=== PATIENT | female | born 2000 | race Asian ===

== ENCOUNTER 2022-07-21 07:30 | Inpatient (IN) ==
--- NOTE | 2022-07-16 10:52 | Anesthesiology Consultation ---
Date of Service July 16, 2022 Assessment & Plan (1) Encounter for pre-operative examination: - COVID screening: Per culinary specialist on 07/16/2022: Travel screen negative, no known COVID-19 positive contacts or current COVID-19 related symptoms in past 2 weeks. To surgeon's discretion if preop COVID testing needed. Chart Review Chart Review: Acceptable Risk for Surgery and Patient NOT seen in Pre Admission Testing History Surgery Operation Date: 07/21/22 07:30 Proposed Procedures p Section (Delivery of Baby Through Abdominal Incision) - Maria Luisa Robles, Height/Weight Height: 5 ft 10 in Weight: 95 kg Allergies Allergy/AdvReac Type Severity Reaction Status Date / Time No Known Allergies Allergy Verified 07/16/22 10:15 Medications Home Medications Medication Instructions Recorded Confirmed Last Taken acetaminophen 500 mg tablet 500 mg PO Q6H PRN Pain 07/16/22 07/16/22 Unknown calcium carbonate 200 mg calcium 200 mg PO UD PRN Indigestion 07/16/22 07/16/22 Unknown (500 mg) chewable tablet (Tums) famotidine 20 mg tablet (Pepcid) 20 mg PO HS 07/16/22 07/16/22 Unknown prenat.vits,monica,vbk-[id number]-xiudy 1 tab PO HS 07/16/22 07/16/22 Unknown Past Medical History Medical History GERD (gastroesophageal reflux disease) History of chicken pox History of COVID-19 02/2022, home test, not hosp; cough, fever, sore throat, fatigue, runny nose, headache>resolved Past Family History Family History Mother Breast cancer Denies family history of Ovarian cancer Lung cancer Past Surgical History Surgical History No significant past surgical history Social History Smoking Status: Never smoker Do You Dip or Chew Tobacco: No Hx Alcohol Use: Yes (not while ) alcohol intake frequency: holidays/special occasions only Hx Substance Use: No substance use type: does not use
[~2022-07-21 07:30] MED LIST: CITRIC ACID/SODIUM CITRATE 15 ML UDC PO SCH; ceFAZolin 2000MG 2,000 MG/15 ML SYR IV SCH
[2022-07-21] MEDS ORDERED: LACTATED RINGER'S 1,000 ML IV SCH ×2 (09:15→17:44)
[2022-07-21 09:21] LABS: Hematocrit (blood only) 36.5 % (34.1-44.9); Hemoglobin 12.2 g/dl (12.0-16.0); Mean Corpuscular Hemoglobin 29.4 pg (25.0-34.0); Mean Corpuscular Hgb Conc 33.4 g/dL (32.0-36.0); Mean Platelet Volume 10.9 fL (9.4-12.3); Platelet Count 210 K/uL (130-400); RDW Coefficient of Variation 14.6 % (11.5-14.5); RDW Standard Deviation 46.6 fL (36.4-46.3); Red Blood Count 4.15 M/uL (3.93-5.22); White Blood Count 8.09 K/ul (4.8-10.8)
[2022-07-21] MEDS ORDERED: diphenhydrAMINE 50 MG/ML VIAL IV PRN (10:29)
[2022-07-21] MEDS ORDERED: NALOXONE HCL 1 MG in SODIUM CHLORIDE 0.9% 1000ML 1,000 ML IV PRN (10:29)
[2022-07-21] MEDS ORDERED: NALBUPHINE HCL INJ 10 MG/ML AMP IV PRN (10:29)
[2022-07-21] MEDS ORDERED: ePHEDrine sulfate 50 MG/ML AMP IV PRN (10:29)
[2022-07-21] MEDS ORDERED: NALOXONE HCL 0.08 MG in SYRINGE 1.8 ML IV PRN (10:29)
[2022-07-21] MEDS ORDERED: LACTATED RINGER'S 500 ML IV PRN (10:29)
[2022-07-21] MEDS ORDERED: MoRPHine SULFATE PF 1 MG/ML 10 ML AMP/VIAL INT SPINAL ONE (10:29)
[2022-07-21] MEDS ORDERED: HYDROmorphone INJ 0.5 MG/0.5 ML SYR IV PRN (10:29)
[2022-07-21] MEDS ORDERED: ONDANSETRON INJ 2 MG/ML 2 ML VIAL IV PRN (10:29)
[2022-07-21] MEDS ORDERED: NALOXONE HCL 0.4 MG/1 ML VIAL/CARP IV PRN (10:29)
[2022-07-21] MEDS ORDERED: DC INTRASPINAL MORPHINE SCH (10:30)
[2022-07-21] MEDS ORDERED: SODIUM CHLORIDE 0.9% 1000ML 1,000 ML IV SCH (10:30)
[2022-07-21] MEDS ORDERED: NO NARCOTICS OR SEDATIVES SCH (10:30)
[2022-07-21] MEDS ORDERED: OXYTOCIN 10 UNITS/ML 10ML VIAL ONE (10:36)
[2022-07-21] MEDS ORDERED: MoRPHine SULFATE PF 1 MG/ML 10 ML AMP/VIAL ONE (10:36)
[2022-07-21] MEDS ORDERED: fentaNYL citrate 100 MCG/2 ML VIAL ONE (10:36)
--- NOTE | 2022-07-21 11:52 | History & Physical Report ---
Date of Service July 21, 2022 Assessment & Plan (1) Encounter for supervision of normal intrauterine in primigravida, antepartum: Plan: Electing primary section. Informed consent was discussed in the office, patient is agreeable. We have reviewed recommendations for vaginal delivery, patient is requesting an elective section instead. Admission and Anticipated Discharge Date Admission Date: July 21, 2022 History of Present Illness Chief Complaint: elective primary Primary Care Provider: [facility] 22yo @ 39 11/04, electing primary section. COVID POSITIVE 03/10/22 HOME TEST (SX STARTED 03/09/22) COVID vaccine from [place] x3 poor tolerance of pelvic exam May need education paraprofessional with some visits. NT per pt request * 01/13/22 @ [facility] small 3cm probable endometrioma of left ovary f/u pp PRIMARY ELECTIVE C/S SCHEDULED FOR 07/21/[address] LEAL NEEDS COVID TEST ON 07/17/2022-ORDERED Allergies Allergy/AdvReac Type Severity Reaction Status Date / Time No Known Allergies Allergy Verified 07/16/22 12:14 Home Medications Medication Instructions Recorded Confirmed Type acetaminophen 500 mg tablet 500 mg PO Q6H PRN Pain 07/16/22 07/21/22 History calcium carbonate 200 mg calcium 200 mg PO UD PRN Indigestion 07/16/22 07/21/22 History (500 mg) chewable tablet (Tums) famotidine 20 mg tablet (Pepcid) 20 mg PO HS 07/16/22 07/21/22 History prenat.vits,monica,[id number] 1 tab PO HS 07/16/22 07/21/22 History Patient History Medical History GERD (gastroesophageal reflux disease) History of chicken pox History of COVID-19 02/2022, home test, not hosp; cough, fever, sore throat, fatigue, runny nose, headache>resolved Surgical History No significant past surgical history Family History Mother Breast cancer Denies family history of Ovarian cancer Lung cancer Social History (Updated 12/12/21 @ 13:45 by Denise Sheehan RN) Smoking Status: Never smoker Second Hand Exposure: No; Do You Dip or Chew Tobacco: No; Tobacco Cessation Education Requested by Patient: No Hx Alcohol Use: No Hx Substance Use: No Preferred Language: Mandarin Croatian Communication Ability: Impaired Hearing Ability: Normal Historiographer Required: Yes Beliefs That Will Affect Care: None marital status: marital status details: MENDOZA Muniz (26) [phone] Current Living Situation: Spouse Current Living Situation Comment: FOB - 1 cat ( FOB doing cat litter) current occupational status: student Other Information That Helps Us Care for You: No Feels Safe at Home: Yes Safety Concerns: Feels Safe At This Time Assistive Devices: Glasses Review of Systems All systems reviewed & are unremarkable except as noted in HPI & below Physical Exam Constitutional: WD/WN, vitals as above Respiratory: normal respiratory effort, lungs clear to auscultation no respiratory distress Cardiovascular: Rate/Rhythm: regular rate and regular rhythm Gastrointestinal (Abdomen): Inspection/Auscultation: abdomen normal to inspection Percussion/Palpation: abdomen soft; abdomen nontender Gravid. No s/s chorio or abruption. Skin: no rashes, warm and dry Psychiatric: A+Ox3, euthymic affect Results & Data ([facility]) Vital Signs (Past 12 Hours) Vital Signs Temp Pulse Resp BP Pulse Ox 07/21/22 11:47 75 97 07/21/22 11:42 73 97 07/21/22 11:37 79 98 07/21/22 11:32 81 99 07/21/22 11:27 87 98 07/21/22 11:22 74 97 07/21/22 11:17 76 97 07/21/22 11:12 72 95 07/21/22 11:07 70 95 07/21/22 11:02 71 95 07/21/22 11:01 77 94 07/21/22 10:57 70 96 07/21/22 10:52 73 96 07/21/22 10:47 77 96 07/21/22 10:42 77 97 07/21/22 10:37 77 97 07/21/22 10:32 82 98 07/21/22 10:27 86 98 07/21/22 10:22 78 97 07/21/22 10:17 77 97 07/21/22 10:12 82 98 07/21/22 10:07 81 97 07/21/22 10:02 72 98 07/21/22 09:57 78 98 07/21/22 09:52 75 98 07/21/22 09:47 70 97 07/21/22 09:36 74 99 07/21/22 09:31 76 98 07/21/22 09:26 81 96 07/21/22 09:21 76 97 07/21/22 09:16 76 97 07/21/22 09:11 75 98 07/21/22 09:06 70 97 07/21/22 09:01 75 97 07/21/22 08:56 74 97 07/21/22 08:51 74 96 07/21/22 08:46 70 96 07/21/22 08:41 77 95 07/21/22 08:23 72 123/58 L 07/21/22 08:24 37.1 C 20 Coding Level of Care Code None Diagnoses Encounter for supervision of normal intrauterine in primigravida, antepartum Z34.00
[2022-07-21] MEDS ORDERED: PHENYLEPHRINE 100MCG/ML 5ML SYR ONE (14:39)
[2022-07-21] MEDS ORDERED: ONDANSETRON INJ 2 MG/ML 2 ML VIAL ONE (14:57)
[2022-07-21 16:11] LABS: Base Excess Cord Arterial Bld -1.4 mEq/L (-9-1.8); Base Excess Cord Venous Blood -1.3 mEq/L (-7.7-1.9); CO2 Cord Arterial Blood 49 mmHg (39.1-73.5); Cord Venous Blood HCO3 25 mmol/L (18.4-26.8); Cord Venous Blood PCO2 46 mmHg (30.4-57.2); Cord Venous Blood PO2 26 mmHg (14.1-43.3); Cord Venous Blood pH 7.34 (7.20-7.44); HCO3 Cord Arterial Blood 25 mmol/L (19.7-28.5); O2 Saturation Cord Venous Bld < 60.0 % (<68); Oxygen Sat Cord Arterial Blood < 60.0 % (<60); PO2 Cord Arterial Blood 25 mmHg (4.1-31.7); pH Cord Arterial Blood 7.32 (7.1-7.38)
--- NOTE | 2022-07-21 16:43 | Anesthesiology Progress Note ---
Date of Service July 21, 2022 Anesthesia Post Procedure Vital Signs Vital Signs: Temp Pulse Resp BP Pulse Ox 07/21/22 16:40 16 07/21/22 16:30 16 07/21/22 16:20 16 07/21/22 16:10 16 07/21/22 16:00 36.3 C L 20 99 07/21/22 16:40 67 07/21/22 16:40 62 136/78 99 07/21/22 16:35 63 100 07/21/22 16:30 61 136/77 99 07/21/22 16:25 58 L 100 07/21/22 16:20 56 L 127/81 99 07/21/22 16:15 58 L 100 07/21/22 16:10 65 07/21/22 16:10 61 126/74 99 07/21/22 16:05 66 98 07/21/22 16:00 57 L 121/67 99 07/21/22 15:57 69 122/76 07/21/22 15:55 62 100 07/21/22 15:50 62 99 07/21/22 15:47 60 123/68 07/21/22 14:20 80 97 07/21/22 14:15 89 99 07/21/22 14:10 83 98 07/21/22 14:05 79 99 07/21/22 12:29 37.1 C 65 20 114/61 07/21/22 12:17 72 97 07/21/22 12:12 73 97 07/21/22 12:07 90 98 07/21/22 12:02 84 98 07/21/22 11:57 79 99 07/21/22 11:52 83 96 07/21/22 11:47 75 97 07/21/22 11:42 73 97 07/21/22 11:37 79 98 07/21/22 11:32 81 99 07/21/22 11:27 87 98 07/21/22 11:22 74 97 07/21/22 11:17 76 97 07/21/22 11:12 72 95 07/21/22 11:07 70 95 07/21/22 11:02 71 95 07/21/22 11:01 77 94 07/21/22 10:57 70 96 07/21/22 10:52 73 96 07/21/22 10:47 77 96 07/21/22 10:42 77 97 07/21/22 10:37 77 97 07/21/22 10:32 82 98 07/21/22 10:27 86 98 07/21/22 10:22 78 97 07/21/22 10:17 77 97 07/21/22 10:12 82 98 07/21/22 10:07 81 97 07/21/22 10:02 72 98 07/21/22 09:57 78 98 07/21/22 09:52 75 98 07/21/22 09:47 70 97 07/21/22 09:36 74 99 07/21/22 09:31 76 98 07/21/22 09:26 81 96 07/21/22 09:21 76 97 07/21/22 09:16 76 97 07/21/22 09:11 75 98 07/21/22 09:06 70 97 07/21/22 09:01 75 97 07/21/22 08:56 74 97 07/21/22 08:51 74 96 07/21/22 08:46 70 96 07/21/22 08:41 77 95 07/21/22 08:23 72 123/58 L 07/21/22 08:24 37.1 C 20 Transfer of Care Handoff Completed per policy Notes Mental Status: alert / awake / arousable Patient Amnestic to Procedure: Yes Nausea / Vomiting: adequately controlled Pain: adequately controlled Airway Patency, RR, SpO2: stable & adequate BP & HR: stable & adequate Hydration State: stable & adequate Neuraxial Anesthesia: was administered and sensory block is resolving Anesthetic Complications: no major complications apparent and Pt Satisfied with anesthetic care
--- NOTE | 2022-07-21 16:54 | Operative Report ---
PG Post Operative Report Pre & Post Diagnosis Operation Date: 07/21/22 10:10 Pre-Op Diagnosis: Elective Section Post-Op Diagnosis: Elective Section I identified the patient and participated in the time-out.: Yes Procedure Operation Date: 07/21/22 10:10 Actual Procedures Primary low transverse Section (Delivery of Baby Through Abdominal Incision); Live female child at 1456 (Bilateral) - Maria Luisa Robles DO Surgeon Maria Luisa Robles, Wood Milling Machine Tender Mary Jo Medrano DO PGY1 Estimated Blood Loss 700 Findings Consistent with Post-Op Diagnosis Viable female , Apgars 8/9. Weight pending - please see nursery records. Normal appearing uterus, fallopian tubes. There was a small left ovarian cyst. Specimens placenta, cord blood, cord gas Drains rae clear yellow Anesthesia Type Spinal Complications none Disposition Accompanied Patient To Recovery: No Disposition: L&D Indications 22yo desiring elective primary section. Description of Procedure The patient was seen in her labor and delivery room, risks benefits and alternatives to surgery were reviewed. Informed consent obtained previously in the office. Questions were answered. She was taken to the operating room, spinal anesthesia was administered. She was then prepared and draped in the usual sterile fashion in the supine position with a leftward tilt. Timeout was confirmed. A Pfannenstiel skin incision was made with a scalpel, and carried through to the underlying layer of fascia. Fascia was nicked at midline, and this incision was extended bilaterally. The superior aspect of the fascial incision was grasped with Bhupinder clamps x2, elevated off the underlying rectus abdominis muscles, and dissected sharply and bluntly. In similar fashion, the inferior aspect of the fascial incision was dissected. The rectus abdominis muscles were , and the peritoneum was entered bluntly digitally. This was extended bilaterally. The bladder flap was taken down carefully using Metzenbaum scissors. Using a new scalpel, a low transverse uterine incision was created. Clear amniotic fluid noted. The infant was delivered from a cephalic presentation. The head delivered, followed by shoulders and body. Spontaneous cry on the field. The cord was doubly clamped and cut, and the infant was handed off to the waiting forest technology professor. A segment was retained for cord gases. Cord blood was obtained. The placenta was delivered spontaneously intact. The uterus was ext eriorized, and cleared of all clots and debris. The hysterotomy incision was reapproximated using 0 Vicryl in a running locked stitch. A second layer of the same suture was used to imbricate the incision. Posterior uterus was evaluated and normal. The uterus was returned to the abdomen, and gutters were cleared of clots and debris. Excellent hemostasis was observed. Per patient request, the rectus abdominis muscles were reapproximated with 2 [id number] sutures of 2-0 chromic. The fascial incision was reapproximated using 0 Vicryl in a running stitch. The subcutaneous tissue was irrigated, and reapproximated using 2-0 plain gut in a running stitch. The skin was reapproximated using 4-0 Vicryl in a running subcuticular stitch. Steri-Strips and a bandage were applied. The patient tolerated the procedure well, and will be taken to the recovery area in stable and good condition. Sponge, needle, instrument counts correct x 2 at conclusion of the case. I attest to the content of the Intraoperative Record and any orders documented therein. Any exceptions are noted below. OB Procedure Charges 66309
[2022-07-21] MEDS: OXYTOCIN 30 UNITS in LACTATED RINGER'S 1,000 ML IV SCH (17:00)
[2022-07-21] MEDS ORDERED: SENNA 8.6 MG TAB PO PRN (17:44)
[2022-07-21] MEDS ORDERED: BENZOCAINE 20% AER SPR 82.5 GM CAN EXT PRN (17:44)
[2022-07-21] MEDS ORDERED: MAGNESIUM HYDROXIDE SUSP 30 ML UDC PO PRN (17:44)
[2022-07-21] MEDS ORDERED: HYDROCORTISONE ACETATE 25 MG SUPP PR PRN (17:44)
[2022-07-21] MEDS ORDERED: DIPHTHERIA/TETANUS/PERTUSSIS 0.5 ML SYR/VIAL IM ONE (17:44)
[2022-07-21] MEDS: SIMETHICONE 80 MG CHEW PO SCH ×2 (19:11→20:06)
[2022-07-21] MEDS: DOCUSATE SODIUM 100 MG CAP PO SCH (20:06)
[2022-07-21] MEDS: KETOROLAC 30 MG/ML VIAL IV PRN (20:06)
[2022-07-22] MEDS: OXYTOCIN 30 UNITS in LACTATED RINGER'S 1,000 ML IV SCH (00:53)
[2022-07-22] MEDS: KETOROLAC 30 MG/ML VIAL IV PRN (04:22)
[2022-07-22] MEDS ORDERED: diphenhydrAMINE 50 MG/ML VIAL IV PRN (04:30)
[2022-07-22] MEDS ORDERED: ONDANSETRON INJ 2 MG/ML 2 ML VIAL IV PRN (04:30)
[2022-07-22] MEDS ORDERED: KETOROLAC 30 MG/ML VIAL IV PRN (04:30)
[2022-07-22] MEDS ORDERED: diphenhydrAMINE Capsule 25 MG CAP PO PRN (04:30)
[2022-07-22] MEDS ORDERED: PROMETHAZINE HCL 25 MG in SODIUM CHLORIDE 0.9% 50 ML IV PRN (04:30)
--- NOTE | 2022-07-22 05:53 | Obstetrical Progress Note ---
Date of Service <Veronique Medrano - Last Filed: 07/22/22 06:46> July 22, 2022 Assessment & Plan <Veronique Medrano - Last Filed: 07/22/22 06:46> (1) Status post section: Rain is out, do a trial of OOB and ambulation and then progress diet as tolerated <Karen Cortes MD - Last Filed: 07/22/22 06:51> (1) Status post section: Subjective <Veronique Medrano - Last Filed: 07/22/22 06:46> Bryn is a 22 y/o female who is POD #1 following delivery at 39 2/7 weeks. She reports feeling well overall this morning. Mild abdominal cramping & pain well managed on analgesics. Rain was just removed, has not voided yet. Tolerating meals overnight. Has not been able to ambulate. Is passing gas and no bowel movement. Has some persistent lochia with some improvement this morning. Currently bottle feeding. Review of Systems Denies fever, chills, sweats Denies shortness of breath, difficulty breathing, chest pain, palpitations, chest pressure. Denies breast pain. Denies dysuria. Denies headache or changes in vision. Physical Exam <Veronique Medrano - Last Filed: 07/22/22 06:46> General: Alert, oriented. No acute distress. Cardiac: Regular rate and rhythm, no murmurs/rubs/gallops. Respiratory: Clear to auscultation bilaterally a/p, no wheezes/rales/rhonchi. No increased work of breathing. Symmetrical chest rise. No respiratory distress. Abdomen: Soft, nontender, nondistended. Uterus: Uterine fundus firm, palpable 2 cm below umbilicus. Surgical scar clean and healing well. Lower Extremities: No lower extremity edema or swelling. No deep calf pain. Radha's negative bilaterally. Results & Data ([facility]) <Veronique Medrano - Last Filed: 07/22/22 06:46> Vital Signs (Past 12 Hours) Vital Signs Temp Pulse Pulse Resp BP BP Pulse Ox 07/22/22 04:30 16 98 07/22/22 04:30 36.9 C 74 16 122/76 99 07/22/22 03:00 16 98 07/22/22 02:00 18 98 07/22/22 01:00 16 98 07/22/22 00:00 16 98 07/21/22 23:00 16 99 07/21/22 23:00 36.6 C 66 16 115/74 99 07/21/22 22:00 16 98 07/21/22 21:00 16 98 07/21/22 20:00 18 98 07/21/22 19:30 16 99 07/21/22 19:30 37.0 C 74 16 115/75 99 07/21/22 18:00 18 100 07/21/22 18:00 36.9 C 74 18 117/74 100 07/21/22 18:00 36.9 C 16 07/21/22 18:00 81 123/81 99 07/21/22 17:58 75 117/74 07/21/22 17:55 70 99 O2 Del Method 07/22/22 04:30 07/22/22 04:30 Room Air 07/22/22 03:00 07/22/22 02:00 07/22/22 01:00 07/22/22 00:00 07/21/22 23:00 07/21/22 23:00 Room Air 07/21/22 22:00 07/21/22 21:00 07/21/22 20:00 07/21/22 19:30 07/21/22 19:30 Room Air 07/21/22 18:00 07/21/22 18:00 Room Air 07/21/22 18:00 07/21/22 18:00 07/21/22 17:58 07/21/22 17:55 <Karen Cortes MD - Last Filed: 07/22/22 06:51> Co-Signing Physician Notes Resident Physician Supervision Note: I interviewed and examined the patient. Discussed with Dr. Medrano and agree with findings and plan as documented in the note. Any exceptions or clarifications are listed here: [ ] Documented By: Karen Cortes MD, FACOG Resident Activity Tracking <Veronique Medrano DO - Last Filed: 07/22/22 06:46> Resident Involvement: Resident Care Provided Care Provided: OB Delivery (Post )
[2022-07-22] MEDS ORDERED: ceFAZolin 2000MG 2,000 MG/15 ML SYR IV SCH (06:00)
[2022-07-22] MEDS ORDERED: CITRIC ACID/SODIUM CITRATE 15 ML UDC PO SCH (06:00)
[2022-07-22 06:21] LABS: Basophils # (auto) 0.02 K/uL (0-0.2); Basophils % (auto) 0.2 %; Eosinophils # (auto) 0.06 K/uL (0-0.50); Eosinophils % (auto) 0.6 %; Hematocrit (blood only) 32.2 % (34.1-44.9); Hemoglobin 10.8 g/dl (12.0-16.0); Immature Granulocytes # (auto) 0.05 K/uL (0.00-0.02); Immature Granulocytes % (auto) 0.5 %; Lymphocytes # (auto) 1.38 K/uL (1.2-3.4); Lymphocytes % (auto) 14.3 %; Mean Corpuscular Hemoglobin 29.1 pg (25.0-34.0); Mean Corpuscular Hgb Conc 33.5 g/dL (32.0-36.0); Mean Corpuscular Volume 86.8 fL (80.0-100.0); Mean Platelet Volume 10.6 fL (9.4-12.3); Monocytes # (auto) 0.57 K/uL (0.24-0.82); Monocytes % (auto) 5.9 %; Neutrophils # (auto) 7.55 K/uL (1.4-6.5); Neutrophils % (auto) 78.5 %; Platelet Count 177 K/uL (130-400); RDW Coefficient of Variation 14.6 % (11.5-14.5); RDW Standard Deviation 46.4 fL (36.4-46.3); Red Blood Count 3.71 M/uL (3.93-5.22); White Blood Count 9.63 K/ul (4.8-10.8)
[2022-07-22] MEDS: PRENATAL VITAMIN 1 TAB PO SCH (07:41)
[2022-07-22] MEDS: DOCUSATE SODIUM 100 MG CAP PO SCH ×2 (07:41→20:05)
[2022-07-22] MEDS: FERROUS SULFATE 325 MG TAB PO SCH (07:41)
[2022-07-22] MEDS: SIMETHICONE 80 MG CHEW PO SCH ×4 (07:41→20:05)
[2022-07-22] MEDS: oxyCODONE/ACETAMINOPHEN 5mg/325mg TAB PO PRN ×4 (08:38→20:06)
[2022-07-22] MEDS: IBUPROFEN 600 MG TAB PO PRN ×4 (08:38→20:06)
[2022-07-22] MEDS ORDERED: bisacodyL 5 MG TABEC PO SCH (20:00)
[2022-07-23] MEDS: oxyCODONE/ACETAMINOPHEN 5mg/325mg TAB PO PRN ×5 (00:08→20:53)
[2022-07-23] MEDS: IBUPROFEN 600 MG TAB PO PRN ×5 (00:09→20:49)
--- NOTE | 2022-07-23 06:08 | Obstetrical Progress Note ---
Date of Service <Veronique Medrano DO - Last Filed: 07/23/22 06:52> July 23, 2022 Assessment & Plan <Veronique Medrano - Last Filed: 07/23/22 06:52> (1) Status post section: Rain is out, continue OOB and ambulation and progress diet as tolerated <Shahana Mchugh MD, FACOG - Last Filed: 07/23/22 08:16> (1) Status post section: Subjective <Veronique Medrano - Last Filed: 07/23/22 06:52> Bryn is a 22 y/o female who is POD #1 following delivery at 39 2/7 weeks. She reports feeling well overall this morning. Moderate abdominal cramping, pain well managed on analgesics.Voiding. Tolerating meals. Has been able to ambulate. Is passing gas and no bowel movement. Has some persistent lochia with some improvement this morning. Currently bottle feeding. Review of Systems Denies fever, chills, sweats Denies shortness of breath, difficulty breathing, chest pain, palpitations, chest pressure. Denies breast pain. Denies dysuria. Denies headache or changes in vision. Physical Exam <Veronique Medrano - Last Filed: 07/23/22 06:52> General: Alert, oriented. No acute distress. Cardiac: Regular rate and rhythm, no murmurs/rubs/gallops. Respiratory: Clear to auscultation bilaterally a/p, no wheezes/rales/rhonchi. No increased work of breathing. Symmetrical chest rise. No respiratory distress. Abdomen: Soft, nontender, nondistended. Uterus: Uterine fundus firm, palpable 2 cm below umbilicus. Surgical scar clean and healing well. Lower Extremities: No lower extremity edema or swelling. No deep calf pain. Radha's negative bilaterally. Results & Data ([facility]) <Veronique Medrano - Last Filed: 07/23/22 06:52> Vital Signs (Past 12 Hours) Vital Signs Temp Pulse Resp BP Pulse Ox O2 Del Method 07/22/22 23:40 36.8 C 68 16 127/79 98 Room Air 07/22/22 19:40 36.8 C 69 18 118/77 98 Room Air <Shahana Mchugh MD, FACOG - Last Filed: 07/23/22 08:16> Co-Signing Physician Notes Resident Physician Supervision Note: I interviewed and examined the patient. Discussed with Dr. Medrano and agree with findings and plan as documented in the note. Any exceptions or clarifications are listed here: [None] Documented By: Shahana Mchugh MD, FACOG Resident Activity Tracking <Veronique Medrano DO - Last Filed: 07/23/22 06:52> Resident Involvement: Resident Care Provided Care Provided: OB Delivery (Post )
[2022-07-23 07:11] LABS: Hematocrit (blood only) 32.4 % (34.1-44.9); Hemoglobin 10.8 g/dl (12.0-16.0)
[2022-07-23] MEDS: SIMETHICONE 80 MG CHEW PO SCH ×4 (08:02→20:49)
[2022-07-23] MEDS: PRENATAL VITAMIN 1 TAB PO SCH (08:02)
[2022-07-23] MEDS: DOCUSATE SODIUM 100 MG CAP PO SCH ×2 (08:02→20:48)
[2022-07-23] MEDS: FERROUS SULFATE 325 MG TAB PO SCH (08:02)
[2022-07-23] MEDS ORDERED: bisacodyL 10 MG SUPP PR PRN (16:56)
[2022-07-24] MEDS: IBUPROFEN 600 MG TAB PO PRN ×3 (05:11→13:29)
[2022-07-24] MEDS: oxyCODONE/ACETAMINOPHEN 5mg/325mg TAB PO PRN ×3 (05:11→13:29)
--- NOTE | 2022-07-24 05:52 | Obstetrical Progress Note ---
Date of Service <Veronique Medrano, DO - Last Filed: 07/24/22:29> July 24, 2022 Assessment & Plan <Veronique Medrano DO - Last Filed: 07/24/22:29> (1) Status post section: Rain is out, continue OOB and ambulation and progress diet as tolerated <Maria Luisa Robles, DO - Last Filed: 07/24/22 07:12> (1) Status post section: Subjective <Veronique Medrano DO - Last Filed: 07/24/22 06:29> Bryn is a 22 y/o female who is POD #3 following delivery at 39 2/7 weeks. She reports feeling well overall this morning. Moderate abdominal cramping, pain well managed on analgesics.Voiding. Tolerating meals. Has been able to ambulate. Is passing gas. Has some persistent lochia with some improvement this morning. Currently bottle feeding. Review of Systems Denies fever, chills, sweats Denies shortness of breath, difficulty breathing, chest pain, palpitations, chest pressure. Denies breast pain. Denies dysuria. Denies headache or changes in vision. Physical Exam <Veronique Medrano DO - Last Filed: 07/24/22 06:29> General: Alert, oriented. No acute distress. Cardiac: Regular rate and rhythm, no murmurs/rubs/gallops. Respiratory: Clear to auscultation bilaterally a/p, no wheezes/rales/rhonchi. No increased work of breathing. Symmetrical chest rise. No respiratory distress. Abdomen: Soft, nontender, nondistended. Uterus: Uterine fundus firm, palpable 2 cm below umbilicus. Surgical scar clean and healing well. Lower Extremities: No lower extremity edema or swelling. No deep calf pain. Radha's negative bilaterally. Results & Data ([facility]) <Veronique Medrano, DO - Last Filed: 07/24/22 06:29> Vital Signs (Past 12 Hours) Vital Signs Temp Pulse Resp BP Pulse Ox O2 Del Method 07/23/22 20:10 Room Air 07/23/22 20:10 36.8 C 75 18 108/72 99 Room Air <Maria Luisa Robles, DO - Last Filed: 07/24/22 07:12> Co-Signing Physician Notes Resident Physician Supervision Note: I was present with Dr. Medrano during the history and exam. I discussed the case with the resident and agree with the findings and plan as documented in the note. Any exceptions or clarifications are listed here: POD3 doing well. DC home today. Instructions reviewed. Documented By: Maria Luisa Robles DO Resident Activity Tracking <Veronique Medrano DO - Last Filed: 07/24/22 06:29> Resident Involvement: Resident Care Provided Care Provided: OB Delivery (Post )
[2022-07-24] MEDS: SIMETHICONE 80 MG CHEW PO SCH (07:29)
[2022-07-24] MEDS: FERROUS SULFATE 325 MG TAB PO SCH (07:29)
[2022-07-24] MEDS: PRENATAL VITAMIN 1 TAB PO SCH (07:29)
[2022-07-24] MEDS: DOCUSATE SODIUM 100 MG CAP PO SCH (07:29)
--- NOTE | 2022-07-30 23:13 | Discharge Summary ---
Date of Service July 30, 2022 Admission HPI Per Admitting Provider 22yo @ 39 11/04, electing primary section. COVID POSITIVE 03/10/22 HOME TEST (SX STARTED 03/09/22) COVID vaccine from [place] x3 poor tolerance of pelvic exam May need maritime officer with some visits. NT per pt request * 01/13/22 @ [facility] small 3cm probable endometrioma of left ovary f/u pp PRIMARY ELECTIVE C/S SCHEDULED FOR 07/21/[address] ROBLES NEEDS COVID TEST ON 07/17/2022-ORDERED Discharge Data Consultations 07/21/22 09:06 Consult Anesthesiology Stat Procedures Performed Operation Date: 07/21/22 10:10 Actual Procedures p Section (Delivery of Baby Through Abdominal Incision); Live female child at 1456 (Bilateral) - Maria Luisa Robles DO Hospital Course (1) Encounter for supervision of normal intrauterine in primigravida, antepartum: Elective primary section, routine recovery. Please see chart for further details. Coding Level of Care Code None Diagnoses Encounter for supervision of normal intrauterine in primigravida, antepartum Z34.00
== END 2022-07-24 14:00 | disposition home or self-care (01) | DRG 788 ==
LOC: EDSTATUS 07:30 → 4S1 08:15 → 4E2 18:15